=== PATIENT | male | born 1950 | race Caucasian/White ===

== ENCOUNTER 2017-04-29 13:35 | Emergency (ER) | payer BC, MEDICARE ==
[2017-04-29 15:01] LABS: INFLUENZA A NEGATIVE (NEGATIVE); INFLUENZA B NEGATIVE (NEGATIVE)
[2017-04-29 15:03] LABS: HEMATOCRIT 44.4 % (42.0-52.0); HEMOGLOBIN 14.9 gm/dl (14.0-18.0); MEAN CELL VOLUME 89.5 fl (81-97); MEAN CORPUSCULAR HGB CONC 33.6 g/dl (32-36); MEAN PLATELET VOLUME 10.3 fl (7.4-10.4); PLATELET COUNT 784 K/uL (130-400); RED BLOOD COUNT 4.96 M/uL (4.40-5.70); RED CELL DISTRIBUTION WIDTH 12.7 % (11.5-14.5); WHITE BLOOD COUNT W/O DIFF 15.1 K/uL (4.2-12.2)
[2017-04-29] MEDS ORDERED: ASPIRIN 81 MG CHEWABLE TABLET PO ONE (15:04)
[2017-04-29] MEDS ORDERED: IPRATROPIUM/ALBUTEROL (0.5MG/3MG) NEB INH ONE (15:07)
[2017-04-29 15:10] LABS: BLOOD UREA NITROGEN 17 mg/dL (8-23); CREATININE 1.1 mg/dL (0.7-1.2); EST GLOMERULAR FILTRATION RATE > 60 mL/min
--- NOTE | 2017-04-29 15:10 | Emergency Department Record ---
History of Present Illness - General Chief Complaint: Difficulty Breathing Stated Complaint: BRITTANEY Time Seen by Provider: 04/29/17 14:59 Mode of Arrival: Ambulatory - History of Present Illness Initial Comments: sob and fatique and cough for 2 weeks and hasn't seen a DRJadyn in 20 years. Tobacco use and stopped smoking 2 weeks ago. 60 pack year. sputum is clear and dry cough. Initially body aches and fever and in bed for 2-3 days. No problems with vomiting and diarrhea and he is dry. decreased appetite and drinking juice and water. Onset/Timin -: Week(s) Severity: Moderate Quality: Aching Consistency: Constant Associated Symptoms: Denies other symptoms Treatments Prior to Arrival: None - Related Data Home Oxygen Therapy: No Home Medications Medication Instructions Recorded Confirmed Last Taken No Home Med [NO HOME MEDS] 04/29/17 04/29/17 Unknown Allergies Allergy/AdvReac Type Severity Reaction Status Date / Time No Known Drug Allergies Allergy Verified 04/29/17 13:54 Travel Screening - Travel/Exposure Within Last 30 Days Have you traveled within the last 30 days?: No - Travel/Exposure Within Last Year Have you traveled outside the [place] in the last year?: No - Additonal Travel Details Have you been exposed to anyone with a communicable illness?: No - Travel Symptoms Symptom Screening: None Review of Systems Reviewed: No additional complaints except as noted below Constitutional: Reports: As per HPI. Denies: Chills, Fever, Malaise, Night sweats, Weakness, Weight change Eyes: Reports: As per HPI. Denies: Eye discharge, Eye pain, Photophobia, Vision change ENT: Reports: As per HPI, Congestion. Denies: Dental pain, Ear pain, Epistaxis , Hearing loss, Throat pain Respiratory: Reports: As per HPI, Cough. Denies: Dyspnea, Hemoptysis, Stridor, Wheezes Cardiovascular: Reports: As per HPI. Denies: Arrhythmia, Chest pain, Dyspnea on exertion, Edema, Murmurs, Orthopnea, Palpitations, Paroxysmal nocturnal dyspnea, Rheumatic Fever, Syncope Endocrine: Reports: As per HPI. Denies: Fatigue, Heat or cold intolerance, Polydipsia, Polyuria Gastrointestinal: Reports: As per HPI. Denies: Abdominal pain, Constipation, Diarrhea, Hematemesis, Hematochezia, Melena, Nausea, Vomiting Genitourinary: Reports: As per HPI. Denies: Dysuria, Frequency, Hematuria, Incontinence, Retention, Testicular pain, Testicular mass, Urgency Musculoskeletal: Reports: As per HPI. Denies: Arthralgia, Back pain, Gout, Joint swelling, Myalgia, Neck pain Skin: Reports: As per HPI. Denies: Bruising, Change in color, Change in hair/ nails, Lesions, Pruritus, Rash Neurological: Reports: As per HPI. Denies: Abnormal gait, Confusion, Headache, Numbness, Paresthesias, Seizure, Tingling, Tremors, Vertigo, Weakness Psychiatric: Reports: As per HPI. Denies: Anxiety, Auditory hallucinations, Depression, Homicidal thoughts, Suicidal thoughts, Visual hallucinations Hematological/Lymphatic: Reports: As per HPI. Denies: Anemia, Blood Clots, Easy bleeding, Easy bruising, Swollen glands Past Medical History - SOCIAL HISTORY Smoking Status: Current every day smoker Alcohol Use: Occasional Drug Use: Rare Drug Use Detail:: Marijuana - RESPIRATORY Hx Respiratory Disorders: No - CARDIOVASCULAR Hx Cardio Disorders: No - NEURO Hx Neuro Disorders: No - GI Hx GI Disorders: No - Hx Genitourinary Disorders: No - ENDOCRINE Hx Endocrine Disorders: No - MUSCULOSKELETAL Hx Musculoskeletal Disorders: No - PSYCH Hx Psych Problems: No - HEMATOLOGY/ONCOLOGY Hx Hematology/Oncology Disorders: No Family Medical History Any Significant Family History?: Yes Hx Cancer: Mother, Grandparents Hx Heart Disease: Father Physical Exam - General General Appearance: Alert, Oriented x3, Cooperative, No acute distress - Head Head exam: Normal inspection - Eye Eye exam: Normal appearance, PERRL Pupils: Normal accommodation - ENT ENT exam: Normal exam, Mucous membranes moist, Normal external ear exam, Normal orophraynx, TM's normal bilaterally Ear exam: Normal external inspection. negative: External canal tenderness Nasal Exam: Normal inspection. negative: Discharge, Sinus tenderness Mouth exam: Normal external inspection, Tongue normal Teeth exam: Normal inspection. negative: Dental caries Throat exam: Normal inspection. negative: Tonsillar erythema, Tonsillar exudate - Neck Neck exam: Normal inspection, Full ROM. negative: Tenderness - Respiratory Respiratory exam: Decreased breath sounds (left side). negative: Respiratory distress - Cardiovascular Cardiovascular Exam: Regular rate, Normal rhythm, Normal heart sounds - GI/Abdominal GI/Abdominal exam: Soft, Normal bowel sounds. negative: Tenderness - Rectal Rectal exam: Deferred - exam: Deferred - Extremities Extremities exam: Normal inspection, Full ROM, Normal capillary refill. negative: Tenderness - Back Back exam: Reports: Normal inspection, Full ROM. Denies: Muscle spasm, Rash noted, Tenderness - Neurological Neurological exam: Alert, Normal gait, Oriented X3, Reflexes normal - Psychiatric Psychiatric exam: Normal affect, Normal mood - Skin Skin exam: Dry, Intact, Normal color, Warm Course Vital Signs 04/29/17 13:41 Temperature 98.1 F Pulse Rate 127 H Respiratory 24 Rate Blood Pressure 131/86 Pulse Ox 92 L discussed case with Jammie. She wanted the patient moved to [facility] - Reevaluation(s) Reevaluation #1: Discused case with Radha and will transfer to [facility] 04/29/17 19:15 Medical Decision Making - Data Complexity MDM Data: Labs Ordered and/or Reviewed, X-Ray Ordered and/or Reviewed (right upper lobe infiltrate,copd,cavitation lesion, CTA No PE, infiltrate most likely pneumonia and cavitation multiple) - Lab Data Result diagrams: 04/29/17 14:15 04/29/17 14:15 Disposition Clinical Impression: Elevated d-dimer Pneumonia Qualifiers: Pneumonia type: due to unspecified organism Laterality: right Lung location: upper lobe of lung Qualified Code(s): J18.1 - Lobar pneumonia, unspecified organism COPD (chronic obstructive pulmonary disease) Qualifiers: COPD type: unspecified COPD Qualified Code(s): J44.9 - Chronic obstructive pulmonary disease, unspecified Disposition: Acute Care Hospital Transfer Condition: (2) Stable Forms: Patient Portal Access Time of Disposition: 19:16 Quality - Quality Measures Quality Measures: N/A - Blood Pressure Screening Does Patient Have Any of the Following: No Blood Pressure Classification: Pre-Hypertensive BP Reading Systolic Measurement: 131 Diastolic Measurement: 86 Screening for High Blood Pressure: < Pre-Hypertensive BP, F/U Documented > [ [id number]] Pre-Hypertensive Follow-up Interventions: Referral to alternative/primary care provider.
[2017-04-29 15:12] LABS: GLUCOSE,RANDOM 196 mg/dL (74-109)
[2017-04-29 15:23] LABS: PLATELET ESTIMATE INCREASED (NORMAL)
[2017-04-29 15:27] LABS: CKMB 2.2 ng/mL (<6.73)
[2017-04-29] MEDS ORDERED: CEFTRIAXONE SODIUM 1 GM in 0.9 % SODIUM CHLORIDE 100ML 100 ML IVPB ONE (16:10)
[2017-04-29] MEDS ORDERED: AZITHROMYCIN 500 MG TABLET PO ONE (16:10)
[2017-04-29] MEDS ORDERED: ALBUTEROL SULFATE (0.083%) 2.5 MG/3 ML NEB INH ONE (18:00)
[2017-04-29] MEDS ORDERED: SODIUM CHLORIDE 0.9% 500 ML IV ONE (18:44)
--- NOTE | 2017-04-30 09:36 | RADIOLOGY REPORT ---
EXAM: CHEST, TWO VIEWS HISTORY: SHORTNESS OF BREATH, COUGH, AND FEVER. TECHNIQUE: PA and lateral upright views of the chest were obtained. Comparison: None. FINDINGS: The heart is normal in size. The mediastinum and pulmonary vasculature are normal. The lungs are hyperinflated consistent with COPD. There is focal air space opacity within the right apex with an associated cavitary component. There is thickening of the adjacent pleura. Bullous emphysematous changes are also noted at the left apex. There is slight nodularity at the left apex. The remaining lung mosqueda are clear. There is no pneumothorax or effusion. IMPRESSION: 1. FOCAL CAVITARY INFILTRATE WITHIN THE RIGHT APEX WITH ADJACENT PLEURAL THICKENING. A FOLLOW-UP CHEST CT IS RECOMMENDED FOR FURTHER CHARACTERIZATION. 2. FAINT NODULARITY AT THE LEFT APEX. 3. UNDERLYING COPD. JOB NUMBER: [id number] MTDD
--- NOTE | 2017-04-30 10:07 | CT ANGIOGRAM REPORT ---
EXAM: CTA OF THE CHEST WITH CONTRAST HISTORY: DIFFICULTY BREATHING. ELEVATED D-DIMER. ABNORMAL CHEST X-RAY. TECHNIQUE: Standard CT angiography of the chest was performed with post processing following the bolus administration of 90 ml of Omnipaque 350. Additional coronal and sagittal maximum intensity projection reformatted images were performed on an independent workstation under concurrent supervision. Comparison: Chest x-ray from the same date. FINDINGS: The heart is normal in size. Mild coronary artery calcifications are present. There is no aortic aneurysm or dissection. The ascending aorta measures up to 3.9 cm in diameter. The pulmonary arterial tree is normal. There is no pulmonary embolus. Extensive emphysematous changes are present within both lungs. There is a dense area of consolidation within the right upper lobe extending to the apex. There is a cavitary component with multiple fluid filled air spaces. This area overall measures approximately 8.2 x 6.6 x 9.5 cm. There is questionable enhancing nodularity along the lateral margin. The appearance overall favors an area of acute pneumonia, however, careful follow-up is recommended to exclude an underlying cavitary neoplasm. A smaller cavitary area with thick gomez and a small amount of fluid is noted just posterior to the larger lesion. The area of consolidation extends to the right hilum. A borderline enlarged right hilar lymph node is present measuring 1 cm in short axis. Multiple nonenlarged mediastinal and hilar lymph nodes are also present. There are a few scattered noncalcified nodules within both lungs. There is a 6 mm noncalcified nodule within the right lower lobe on image 87 of 143. A 5 mm noncalcified nodule is present within the left lower lobe laterally on image number 101 of 143. There is a 6 mm nodule within the left lower lobe laterally on image 97 of 143. A faint 4 mm nodule is present within the left upper lobe on image 45 of 143. Degenerative changes are present within the spine. There is mild prominence of the adrenal glands with no discreet mass identified. The upper abdomen is otherwise unremarkable. IMPRESSION: 1. DENSELY CONSOLIDATED CAVITARY LESION IS PRESENT WITHIN THE RIGHT UPPER LOBE EXTENDING FROM THE HILUM TO THE APEX. THE APPEARANCE FAVORS ACUTE PNEUMONIA. SHORT TERM FOLLOW-UP IS RECOMMENDED TO EXCLUDE CAVITARY NEOPLASM. 2. BORDERLINE ENLARGED RIGHT HILAR LYMPH NODE. 3. EXTENSIVE EMPHYSEMATOUS CHANGES WITHIN BOTH LUNGS. 4. SCATTERED NONCALCIFIED NODULES BILATERALLY. THESE ALSO CAN BE REASSESSED ON FOLLOW-UP. 5. NO EVIDENCE FOR PULMONARY EMBOLUS OR AORTIC DISSECTION. 6. ADDITIONAL CHRONIC FINDINGS ABOVE. JOB NUMBER: [id number] MTDD
== END 2017-04-29 22:57 | disposition short-term general hospital (02) ==
LOC: ER 13:35
DX: J18.1 Lobar pneumonia, unspecified organism (principal); J44.9 Chronic obstructive pulmonary disease, unspecified; R79.89 Other specified abnormal findings of blood chemistry; F17.210 Nicotine dependence, cigarettes, uncomplicated; R53.83 Other fatigue
CPT/HCPCS: 99285 ×2; 96374; 85730; 82553; 80048; 87400; 84484; 85379; 85027; 71046; 71275; 94640; 93005; 93010; Q9967; J7613